=== PATIENT | male | born 1955 | race Caucasian/White ===

== ENCOUNTER → 2020-03-21 | Outpatient (CLI) | payer MEDICARE, MEDICAID ==
--- NOTE | 2020-03-21 15:36 | Diagnostic Imaging Report ---
Indication: Bilateral tingling sensation in hands, neck pain Technique: Sagittal T1 FLAIR PROPELLER, sagittal T2 PROPELLOR, sagittal STIR, axial T2 PROPELLER, axial 3D COSMIC ASPIR images were obtained through the cervical spine Comparison: none Findings: Bony alignment is normal. Vertebral body heights are preserved. There is anterior spinal fusion hardware at C5, C6, and C7 with evidence of disc spacers at these levels. These are of a mild amount of susceptibility artifact which. Obscure pathology. Vertebral marrow signal is normal. At C3-4, there is severe central and right paracentral disc protrusion/osteophyte complex. The disc protrudes approximately 6 mm posterior to the posterior margin of the vertebral body. This in combination with ligamentum flavum hypertrophy results in severe narrowing of the spinal canal. Centrally, the spinal canal is narrowed to approximately 4 mm, and the right lateral aspect of the spinal canal is narrowed to about 2 mm. There is resultant compression of the cord both centrally and especially laterally. There is a focus of fairly intense high T2 signal on the right side of the spinal cord in this area medicine with an area of myelomalacia. There is also some high T2 signal on the left side of the cord representing small foci of myelomalacia as well. There is mild right neural foraminal stenosis. There is severe left neural foraminal stenosis. At C4-5, there is central disc protrusion/osteophyte complex. This narrows the spinal canal to about 5 mm AP diameter and results in some impingement upon the cord, not as severe as at higher level. No significant myelomalacia seen at this level. There is moderate to severe right and severe left neural foraminal stenosis at this level. At C5-6, there is very minimal central disc protrusion which does not significantly narrow the spinal canal or impinge on the cord. However, there is central myelomalacia as well as cord atrophy at this level extending to C6-7. There is severe bilateral neural foraminal stenosis. At C6-7, no significant disc bulge or protrusion or spinal stenosis. There is mild to moderate right, mild left neural foraminal stenosis. At C7-T1, there is bilateral paracentral focal disc protrusion, which does not significantly compromise the spinal canal or the lateral recesses. No significant neural foraminal stenosis is evident. At C2-3, no significant disc bulge or protrusion, spinal stenosis, or neural foraminal narrowing. The included extraspinal soft tissues are unremarkable. Impression: Positive for severe spinal stenosis with cord compression at C3-4 due to central and right paracentral disc protrusion/osteophyte complex and ligamentum flavum hypertrophy. There is resultant myelomalacia at this level. Positive for less severe but still significant spinal stenosis with borderline cord compression at C3-4-5 due to central disc protrusion/osteophyte complex. Evidence of prior surgery involving C5, C6, C7 no significant spinal stenosis at these levels. Myelomalacia extending from C5-6 and C6-7. This may be sequela of prior insults. Multilevel neural foraminal stenoses, as detailed on a level by level basis above Findings discussed by phone with Brooks in Dr. Dickerson's office at the time of interpretation
--- NOTE | 2020-03-21 15:40 | Diagnostic Imaging Report ---
Indication: Lower back pain, pain radiating down left leg Technique: Sagittal T1 and T2 fast spin echo, sagittal STIR, axial T1 and T2 fast spin-echo images of the lumbar spine Comparison: none Findings: Bony alignment is normal. Vertebral body heights are preserved. The disc spaces are preserved. The vertebral marrow signal is normal. The conus medullaris terminates at the L1 level. At L3-4, there is minimal circumferential annular bulge. This does not significantly narrow the spinal canal. There is facet and ligamentum flavum hypertrophy, which likewise do not result in any significant neural impingement. The neural foramina are preserved. At L4-5, there is circumferential annular bulge, bilateral facet and ligament flavum hypertrophy, which do not result in any significant narrowing of the spinal canal or neural foramina. At L5-S1, there is mild left paracentral posterior disc protrusion. This does not result in any significant compromise of the spinal canal. There is mild bilateral facet hypertrophy. There is no significant neural foraminal stenosis demonstrated. The included extraspinal soft tissues are unremarkable. There is susceptibility artifact in the lower pelvis bilaterally, likely reflecting metallic hip prostheses. Impression: Minimal degenerative changes, as described above. No evidence of significant neural impingement for acute injury.
--- NOTE | 2020-03-21 18:02 | Diagnostic Imaging Report ---
Indication: Pain, trauma Technique: 3 views right great toe Comparison: none Findings: There is an oblique fracture through the medial distal aspect of the first proximal phalanx. This is minimally displaced. No other acute fractures. No dislocations. Joint spaces are preserved. Impression: Positive for first proximal phalangeal fracture positive for fracture of the proximal phalanx
== END | disposition home or self-care (01) ==
LOC: RAD 13:01
DX: M54.5 Low back pain (principal); M79.605 Pain in left leg; M51.27 Other intervertebral disc displacement, lumbosacral region
CPT/HCPCS: 72141; 72148